=== PATIENT | male | born 1975 | race Caucasian/White ===

== ENCOUNTER 2017-02-09 14:38 | Emergency (ER) | payer MEDICARE, OTHER ==
[2017-02-09 15:09] LABS: Bilirubin Negative (Negative); Blood, Urine Negative (Negative); Glucose, Urine (Dipstick) Negative (Negative); Leukocyte Negative (Negative); Nitrite Negative (Negative); Protein, Urine (Dipstick) Negative (Neg-Trace); Urobilinogen 0.2 mg/dL (0.2-1.0)
[2017-02-09 15:11] LABS: #Basophils 0.1 thou/uL (0.0-0.2); #Eosinphils 0.1 thou/uL (0.0-0.7); #Lymphocytes 1.6 thou/uL (1.20-3.40); #Monocytes 0.5 thou/uL (0.11-0.59); #Neutrophils 5.2 thou/uL (1.40-6.50); %Basophils 0.9 % (0.0-1.0); %Eosinophils 0.7 % (0.0-10.0); %Lymphocytes 21.8 % (21.0-51.0); %Monocytes 6.2 % (0.0-10.0); %Neutrophils 70.4 % (42.0-75.0); Hemoglobin 16.1 g/dL (14.0-18.0); Mean Corpuscular HGB CONC 33.6 g/dL (32.0-36.0); Mean Corpuscular Hemoglobin 31.3 pg (27.0-31.0); Mean Platelet Volume 6.2 fL (7.4-10.4); Platelet Count 251 thou/uL (130-400); RBC Distribution Width 11.9 % (11.5-14.5); Red Blood Cell (RBC) Count 5.13 mill/uL (4.70-6.10); White Blood Cell (WBC) Count 7.4 thou/uL (4.8-10.8)
[2017-02-09 15:12] LABS: Clarity SL HAZY (Clear)
[2017-02-09 15:20] LABS: Amphetamine Not Detected (NotDetected); Barbiturates Screen Not Detected (NotDetected); Benzodiazepine Screen Not Detected (NotDetected); Cocaine Metabolite Screen Not Detected (NotDetected); Medtox Control Line Valid? VALID (VALID); Methadone Not Detected (NotDetected); Methamphetamine Not Detected (NotDetected); Opiate Screen Not Detected (NotDetected); Oxycodone Screen Not Detected (NotDetected); Phencyclidine (PCP) Not Detected (NotDetected); THC/Cannabinoid Screen Not Detected (NotDetected); Tricyclic Screen Not Detected (NotDetected)
[2017-02-09 15:24] LABS: Alcohol Less than 10 mg/dL (Less than 10); Anion Gap 16 mmol/L (10-20); BUN (Urea Nitrogen) 13 mg/dL (8.9-20.6); Calc. Creatinine Clearance 0 mL/min (70-130); Calcium 9.8 mg/dL (7.8-10.44); Carbon Dioxide 25 mmol/L (22-29); Chloride 103 mmol/L (98-107); Estimated GFR-MDRD Greater than 90; Glucose 82 mg/dL (70-105); Potassium 4.4 mmol/L (3.5-5.1); Sodium 140 mmol/L (136-145)
[2017-02-09] MEDS ORDERED: Ketorolac Tromethamine 60 MG/2 ML VIAL ONE (16:14)
[2017-02-09] MEDS ORDERED: Oxymetazoline HCl 0.05% ( 15 ML ) ONE (16:52)
[2017-02-09] MEDS ORDERED: Lorazepam 1 MG TAB ONE (19:01)
[2017-02-09] MEDS ORDERED: Haloperidol 1 MG TAB ONE (20:04)
== END 2017-02-09 23:22 ==
LOC: NAV ERS 14:38
DX: F29 Unspecified psychosis not due to a substance or known physiological condition (principal); F32.9 Major depressive disorder, single episode, unspecified; Z87.891 Personal history of nicotine dependence
CPT/HCPCS: 80048; 80306; 80307; 81003; 84443; 85025; 99285; J1885

== ENCOUNTER 2017-12-17 17:03 | Outpatient (CLI) | payer OTHER ==
--- NOTE | 2017-12-17 17:29 | RAD ---
TWO VIEWS OF THE CHEST 12/17/17 COMPARISON: None. HISTORY: Cough. FINDINGS: There is atherosclerotic calcification of the aortic arch. There is no pneumothorax, pleural fluid, f ocal consolidation or alveolar edema. Heart and mediastinal contours are grossly unremarkable. IMPRESSION: No radiographic evidence of acute cardiopulmonary disease. POS: [facility]
== END 2017-12-17 17:04 | disposition home or self-care (01) ==
LOC: NAV RAD 17:03
PROVIDERS: ATTEND Nurse Practitioner Family
DX: R05 Cough (principal)
CPT/HCPCS: 71046

== ENCOUNTER 2018-05-17 12:51 | Emergency (ER) | payer OTHER ==
[2018-05-17] MEDS ORDERED: Cyclobenzaprine 10 MG TAB ONE (13:39)
[2018-05-17] MEDS ORDERED: Ketorolac Tromethamine 60 MG/2 ML VIAL ONE (13:39)
--- NOTE | 2018-05-17 14:16 | RAD ---
PA AND LATERAL OF THE CHEST: INDICATION: Cough. COMPARISON: Prior exam dated 12/17/17. FINDINGS: Heart size is within normal limits. The pulmonary vasculature is within normal limits. There are va scular calcifications involving the aortic arch which are stable. No confluent airspace opacity, ple ural effusion, or pneumothorax is evident. No acute osseous abnormality is evident. IMPRESSION: No acute cardiopulmonary abnormality. POS: [facility]
== END 2018-05-17 14:46 | disposition home or self-care (01) ==
LOC: NAV ERS 12:51
DX: G89.29 Other chronic pain (principal); M54.5 Low back pain; R05 Cough; F32.9 Major depressive disorder, single episode, unspecified; F20.9 Schizophrenia, unspecified; F17.210 Nicotine dependence, cigarettes, uncomplicated
CPT/HCPCS: 71046; 96372; J1885

== ENCOUNTER 2018-08-22 12:27 | Outpatient (CLI) | payer MEDICARE, OTHER ==
--- NOTE | 2018-08-22 16:21 | RAD ---
THREE VIEWS OF THE LUMBOSACRAL SPINE 08/22/18 COMPARISON: None. HISTORY: Low back pain. FINDINGS: Three views of the lumbosacral spine shows normal height and alignment of vertebral bodies and interv ertebral discs of the lumbar spine without acute fracture or subluxation. Small osteophytes are seen in the mid and lower lumbar spine. No significant posterior facet arthrosis is seen. IMPRESSION: Mild degenerative changes of the lumbar spine without acute osseous abnormality. POS: [facility]
--- NOTE | 2018-08-22 16:23 | RAD ---
THREE VIEWS OF THE THORACIC SPINE 08/22/18 COMPARISON: None. HISTORY: Acute back pain. FINDINGS: Three views of the thoracic spine shows slight wedging of some of the lower thoracic vertebral bodies . This likely is congenital. No obvious acute fracture or subluxation is seen. No significant degener ative changes are present. There is mild scoliotic curvature of the spine. IMPRESSION: No evidence of acute osseous abnormality. POS: [facility]
== END 2018-08-22 12:28 | disposition home or self-care (01) ==
LOC: NAV RAD 12:27
DX: M54.5 Low back pain (principal); M47.896 Other spondylosis, lumbar region
CPT/HCPCS: 72072; 72100

== ENCOUNTER 2020-07-20 19:30 | Emergency (ER) | payer MEDICARE, OTHER ==
[2020-07-20 20:18] LABS: #Basophils 0.1 thou/uL (0.0-0.2); #Eosinphils 0.1 thou/uL (0.0-0.7); #Lymphocytes 1.6 thou/uL (1.20-3.40); #Monocytes 0.5 thou/uL (0.11-0.59); #Neutrophils 5.1 thou/uL (1.40-6.50); %Basophils 0.9 % (0.0-1.0); %Eosinophils 1.7 % (0.0-10.0); %Lymphocytes 21.6 % (21.0-51.0); %Monocytes 7.2 % (0.0-10.0); %Neutrophils 68.7 % (42.0-75.0); Hemoglobin 14.3 g/dL (14.0-18.0); Mean Corpuscular Hemoglobin 29.9 pg (27.0-31.0); Mean Corpuscular Volume 93.3 fL (78.0-98.0); Mean Platelet Volume 7.2 fL (7.4-10.4); Platelet Count 270 thou/uL (130-400); RBC Distribution Width 12.4 % (11.5-14.5); Red Blood Cell (RBC) Count 4.78 mill/uL (4.70-6.10); White Blood Cell (WBC) Count 7.4 thou/uL (4.8-10.8)
--- NOTE | 2020-07-20 20:22 | RAD ---
TWO VIEWS CHEST: 07/20/20 PROVIDED CLINICAL HISTORY: Chest pain FINDINGS: Comparison 05/17/18. The cardiac and mediastinal silhouette is within normal limits. No focal consolidation, pleural fluid or pneumothorax apparent. Vascular calcification is seen involving the aortic arch. IMPRESSION: No evidence or an acute cardiopulmonary process. POS: [facility]
[2020-07-20 20:38] LABS: ALT (SGPT) 20 U/L (8-55); AST (SGOT) 19 U/L (5-34); Albumin 3.8 g/dL (3.5-5.0); Alkaline Phosphatase 100 U/L (40-110); Anion Gap 12 mmol/L (10-20); BUN (Urea Nitrogen) 9 mg/dL (8.9-20.6); Bilirubin, Total 0.5 mg/dL (0.2-1.2); Calc. Creatinine Clearance 0 mL/min (70-130); Calcium 8.9 mg/dL (7.8-10.44); Carbon Dioxide 26 mmol/L (22-29); Chloride 105 mmol/L (98-107); Estimated GFR-MDRD 81; Globulin 2.5 g/dL (2.4-3.5); Glucose 77 mg/dL (70-105); Lipase 36 U/L (8-78); Potassium 3.8 mmol/L (3.5-5.1); Protein, Total 6.3 g/dL (6.0-8.3); Sodium 139 mmol/L (136-145)
[2020-07-20] MEDS ORDERED: Aspirin Chewable 81 MG TAB ONE (20:57)
== END 2020-07-20 21:21 | disposition home or self-care (01) ==
LOC: NAV ERS 19:30
DX: R07.9 Chest pain, unspecified (principal); K29.00 Acute gastritis without bleeding; M54.6 Pain in thoracic spine; F32.9 Major depressive disorder, single episode, unspecified; F20.9 Schizophrenia, unspecified; F17.210 Nicotine dependence, cigarettes, uncomplicated
CPT/HCPCS: 71046; 80053; 83690; 84484; 85025; 93005; 94760

== ENCOUNTER 2020-08-01 03:42 | Emergency (ER) | payer MEDICARE, OTHER | END 2020-08-01 04:35 | disposition home or self-care (01) | LOC: NAV ERS 03:42 | DX: Z72.821 Inadequate sleep hygiene (principal); R51.9 Headache, unspecified; F32.9 Major depressive disorder, single episode, unspecified; F20.9 Schizophrenia, unspecified; F17.210 Nicotine dependence, cigarettes, uncomplicated ==

== ENCOUNTER 2021-05-23 19:04 | Emergency (ER) | payer MEDICARE, OTHER | END 2021-05-23 19:30 | disposition home or self-care (01) | LOC: NAV ERS 19:04 | DX: M54.6 Pain in thoracic spine (principal); G89.29 Other chronic pain; F17.210 Nicotine dependence, cigarettes, uncomplicated | CPT/HCPCS: 99283 ==